=== PATIENT | female | born 1965 | race Caucasian/White ===

== ENCOUNTER → 2017-06-20 | Outpatient (CLI) | payer MEDICAID ==
[2017-06-20 10:35] LABS: HCT 44.9 % (34.0-46.0); MCHC 31.2 g/dL (31.0-37.0); MCV 96.1 fL (80.0-100.0); Mean Platelet Volume 7.3; Platelet Count 313 k/uL (150-450); RBC 4.67 m/uL (3.80-5.40); WBC 8.5 k/uL (3.8-10.6)
[2017-06-20 11:14] LABS: ALT 28 U/L (9-52); AST 27 U/L (14-36); Albumin 4.4 g/dL (3.5-5.0); Alkaline Phosphatase 62 U/L (38-126); Anion Gap 10 mmol/L; Blood Urea Nitrogen 10 mg/dL (7-17); Calcium 9.8 mg/dL (8.4-10.2); Carbon Dioxide 26 mmol/L (22-30); Chloride 106 mmol/L (98-107); Cholesterol 224 mg/dL (<200); Glucose 83 mg/dL (74-99); HDL Cholesterol 63 mg/dL (40-60); LDL Cholesterol,Calculated 132 mg/dL (0-99); Potassium 4.4 mmol/L (3.5-5.1); Sodium 142 mmol/L (137-145); Total Bilirubin 0.4 mg/dL (0.2-1.3); Total Protein 7.2 g/dL (6.3-8.2); Triglycerides 145 mg/dL (<150)
[2017-06-20 11:29] LABS: T4, Free (Free Thyroxine) 0.92 ng/dL (0.78-2.19)
[2017-06-20 11:46] LABS: Appearance,Urine Clear (Clear); Bilirubin,Urine Negative (Negative); Blood,Urine Negative (Negative); Color,Urine Colorless; Glucose,Urine (UA) Negative (Negative); Ketones,Urine Negative (Negative); Leukocyte Esterase,Urine Negative (Negative); Nitrite,Urine Negative (Negative); Protein,Urine Negative (Negative); Specific Gravity,Urine 1.002 (1.001-1.035); Urobilinogen,Urine <2.0 mg/dL (<2.0)
== END | disposition home or self-care (01) ==
LOC: LABMAIN 10:08
PROVIDERS: ATTEND Family Medicine
DX: Z00.00 Encounter for general adult medical examination without abnormal findings (principal)
CPT/HCPCS: 36415; 80053; 80061; 81003; 82306; 84439; 84443; 85027

== ENCOUNTER → 2017-07-13 | Outpatient (CLI) | payer MEDICAID ==
--- NOTE | 2017-07-14 11:15 | MM ---
Reason for exam: screening (asymptomatic). Last mammogram was performed 1 year and 3 months ago. History: Patient has history of other cancer at age 43. Took hormonal contraceptives for 15 years. Physical Findings: A clinical breast exam by your physician is recommended on an annual basis and results should be correlated with mammographic findings. MG 3D Screening Mammo W/Cad Bilateral CC and MLO view(s) were taken. Prior study comparison: April 14, 2016, bilateral MG 3d screening mammo w/cad. February 19, 2015, left breast MG 3d work up w/cad LT. The breast tissue is heterogeneously dense. This may lower the sensitivity of mammography. Finding #1: There is a new 6 mm mass in the upper outer quadrant, middle depth of the right breast. Finding #2: There are typically benign diffuse/scattered calcifications in the left breast. No suspicious abnormality in the left breast. ASSESSMENT: Incomplete: need additional imaging evaluation, BI-RAD 0 RECOMMENDATION: Special view mammogram of the right breast. If lesion persists on supplemental views, image directed ultrasound is recommended. [facility] will attempt to contact patient to return for supplemental views and ultrasound if indicated.
== END | disposition home or self-care (01) ==
LOC: RADMAMWWP 14:51
PROVIDERS: ATTEND Obstetrics & Gynecology
DX: Z12.31 Encounter for screening mammogram for malignant neoplasm of breast (principal)
CPT/HCPCS: 77063; 77067

== ENCOUNTER → 2017-07-18 | Outpatient (CLI) | payer MEDICAID ==
--- NOTE | 2017-07-18 10:38 | MM ---
Reason for exam: additional evaluation requested from abnormal screening. Last mammogram was performed less than 1 month ago. History: Patient has history of other cancer at age 43. Took hormonal contraceptives for 15 years. Physical Findings: Nurse did not find any significant physical abnormalities on exam. MG 3D Work Up W/Cad RT Spot compression CC, spot compression MLO, and LM view(s) were taken of the right breast. Prior study comparison: July 13, 2017, bilateral MG 3d screening mammo w/cad. April 14, 2016, bilateral MG 3d screening mammo w/cad. Finding: There is a subtle 6 mm equal density (isodense), partially obscured round mass located 4 cm from the nipple in the upper outer quadrant, middle position of the right breast. New finding since April 14, 2016. These results were verbally communicated with the patient and result sheet given to the patient on 07/18/17. ASSESSMENT: Incomplete: need additional imaging evaluation, BI-RAD 0 RECOMMENDATION: Ultrasound of the right breast.
--- NOTE | 2017-07-18 10:42 | USB ---
Reason for exam: additional evaluation requested from abnormal screening. History: Patient has history of other cancer at age 43. Took hormonal contraceptives for 15 years. US Breast Workup Limited RT Right breast ultrasound demonstrates a 0.7 x 0.5 x 0.6cm oval, cystic lesion at 10 o'clock. These results were verbally communicated with the patient and result sheet given to the patient on 07/18/17 ASSESSMENT: Benign, BI-RAD 2 RECOMMENDATION: Return to routine screening mammogram schedule for both breasts.
== END | disposition home or self-care (01) ==
LOC: RADMAMWWP 08:55
PROVIDERS: ATTEND Obstetrics & Gynecology
DX: R92.8 Other abnormal and inconclusive findings on diagnostic imaging of breast (principal)
CPT/HCPCS: 77065; 76642; G0279